=== PATIENT | female | born 1950 | race Caucasian/White ===

== ENCOUNTER 2024-11-11 11:30 | Inpatient (IN) | payer MEDICARE, BC ==
[~2024-11-11] VITALS: Ht 160 cm; Wt 68.0 kg
[2024-11-11 12:13] LABS: ABG BASE EXCESS -2.6 mmol/L (-2.0-3.0); ABG HCO3 22.4 mmol/L (21.0-28.0); ABG PCO2 39.5 mmHg (32.0-45.0); ABG PH 7.371 (7.350-7.450); ABG PO2 82.8 mmHg (83.0-108.0); ABG SITE RIGHT RADIAL; AaDO2 95.9 mmHg; COHb 0.8 % (0.5-1.5); MetHb 0.3 % (0.0-1.5); O2Hb 95.2 % (94.0-98.0); VT, ABG 500 mL
[2024-11-11 12:15] LABS: BASOPHILS % (AUTO) 0.1 % (0.0-2.0); EOSINOPHILS % (AUTO) 0.3 % (0.0-7.0); HEMATOCRIT 42.2 % (31.2-41.9); HEMOGLOBIN 14.2 g/dL (10.9-14.3); LYMPHOCYTES % (AUTO) 9.8 % (20.5-51.5); MEAN CORPUSCULAR HEMOGLOBIN 29.7 uug (24.7-32.8); MEAN CORPUSCULAR HGB CONC 34 g/dL (32.3-35.6); MEAN CORPUSCULAR VOLUME 88.4 fL (75.5-95.3); MONOCYTES # (AUTO) 0.1 K/uL (0.1-1.30); MONOCYTES % (AUTO) 1.2 % (0.0-11.0); NEUTROPHILS # (AUTO) 9.1 K/uL (1.8-8.9); NEUTROPHILS % (AUTO) 88.6 % (38.5-71.5); PLATELET COUNT (AUTO) 209 K/uL (179-408); RED BLOOD CELL COUNT(AUTO) 4.77 MIL/uL (3.63-4.92); RED CELL DISTRIBUTION WIDTH 13.5 % (12.3-17.7); WHITE BLOOD COUNT (AUTO) 10.3 K/uL (3.8-11.8)
[2024-11-11 12:18] LABS: DIFFERENTIAL COMMENT 1
[2024-11-11 12:37] LABS: CALCIUM 8.6 mg/dL (8.5-10.1); CARBON DIOXIDE 26 mmol/L (21-32); CHLORIDE 104 mmol/L (98-107); CREATININE 0.7 mg/dL (0.6-1.3); GLUCOSE 252 mg/dL (74-106); POTASSIUM 3.7 mmol/L (3.5-5.1); SODIUM SERUM 138 mmol/L (136-145); UREA NITROGEN, BLOOD 16 mg/dL (7-18)
[2024-11-11 12:49] LABS: ALANINE AMINOTRANSFERASE 26 U/L (14-59); ALBUMIN 3.4 g/dL (3.4-5.0); ALKALINE PHOSPHATASE 74 U/L (50-136); ASPARTATE AMINOTRANSFERASE 19 U/L (15-37); BILIRUBIN,DIRECT 0.1 mg/dL (0.0-0.2); BILIRUBIN,TOTAL 0.7 mg/dL (0.2-1.0); NT-PRO BNP 50 pg/mL (0-125)
[2024-11-11 13:14] LABS: *BILIRUBIN,URIN NEGATIVE (NEGATIVE); *BLOOD, URINE NEGATIVE (NEGATIVE); *CLARITY,URINE CLEAR (CLEAR); *COLOR,URINE YELLOW (YELLOW); *KETONES,URINE NEGATIVE (NEGATIVE); *PROTEIN,URINE NEGATIVE (NEGATIVE); *UROBILINOGEN,URINE 0.2 E.U./dl (NORMAL); LEUKOCYTE ESTERASE ,URINE 1+ (NEGATIVE); NITRITE, URINE NEGATIVE (NEGATIVE); UGLUCOSE TRACE (NEGATIVE)
[2024-11-11 13:24] LABS: BACTERIA,URINE FEW /HPF (NONE SEEN); RBC,URINE 0-3 /HPF (0-3); SQUAMOUS EPITHELIAL CELL,UR FEW /HPF (NONE SEEN)
[2024-11-11] MEDS ORDERED: FUROSEMIDE 20 MG/2 ML VIAL ONE (15:15)
[2024-11-11] MEDS: FUROSEMIDE 20 MG/2 ML VIAL IV ONE (15:33)
[2024-11-11] MEDS ORDERED: HYDR-3973 PO (16:33)
[2024-11-11] MEDS ORDERED: OMEP40CA21 PO (16:33)
[2024-11-11] MEDS ORDERED: ALPR0.5T8 PO (16:33)
[2024-11-11] MEDS ORDERED: PROPOFOL 100 ML ONE (18:54)
[2024-11-11] MEDS: IV NORMAL SALINE 500 ML BAG IV ONE (20:35)
[2024-11-11] MEDS: PROPOFOL 100 ML IV PRN (21:35)
[2024-11-11] MEDS ORDERED: ACETAMINOPHEN 325 MG TABLET PO PRN (21:45)
[2024-11-11] MEDS ORDERED: ONDANSETRON 4 MG/2 ML VIAL IV PRN (21:45)
[2024-11-11 22:00] VITALS: BP 130/65; TEMP 98.5; O2SAT 99
[2024-11-11] MEDS: ENOXAPARIN SODIUM 40 MG/0.4 ML DISP.SYRIN SQ SCH (22:11)
[2024-11-11] MEDS ORDERED: CEFTRIAXONE /D5W 50ML IVPB **ER PYXIS IV ONE (22:43)
[2024-11-11 23:00] VITALS: BP 132/71; O2SAT 100
[2024-11-11] MEDS: CEFTRIAXONE 1 G in IV DEXTROSE 5% 50 ML IV SCH (23:30)
[2024-11-12] VITALS (32 sets, daily range): BP systolic 102–151; BP diastolic 34–132; TEMP 98.3–99.3; O2SAT 89–100
[2024-11-12 05:54] LABS: BASOPHILS # (AUTO) 0.1 K/UL (0.0-0.2); BASOPHILS % (AUTO) 0.5 % (0.0-2.0); EOSINOPHILS # (AUTO) 0.1 K/uL (0.0-0.7); EOSINOPHILS % (AUTO) 0.6 % (0.0-7.0); HEMATOCRIT 37.1 % (31.2-41.9); HEMOGLOBIN 12.6 g/dL (10.9-14.3); LYMPHOCYTES % (AUTO) 13.7 % (20.5-51.5); MEAN CORPUSCULAR HEMOGLOBIN 30.2 uug (24.7-32.8); MEAN CORPUSCULAR HGB CONC 34 g/dL (32.3-35.6); MEAN CORPUSCULAR VOLUME 88.8 fL (75.5-95.3); MONOCYTES # (AUTO) 1.2 K/uL (0.1-1.30); MONOCYTES % (AUTO) 7.9 % (0.0-11.0); NEUTROPHILS # (AUTO) 11.3 K/uL (1.8-8.9); NEUTROPHILS % (AUTO) 77.3 % (38.5-71.5); PLATELET COUNT (AUTO) 232 K/uL (179-408); RED BLOOD CELL COUNT(AUTO) 4.17 MIL/uL (3.63-4.92); RED CELL DISTRIBUTION WIDTH 13.6 % (12.3-17.7); WHITE BLOOD COUNT (AUTO) 14.7 K/uL (3.8-11.8)
[2024-11-12 06:07] LABS: DIFFERENTIAL COMMENT 1
[2024-11-12 06:18] LABS: CALCIUM 8.5 mg/dL (8.5-10.1); CARBON DIOXIDE 27 mmol/L (21-32); CHLORIDE 106 mmol/L (98-107); CREATININE 0.7 mg/dL (0.6-1.3); GLUCOSE 166 mg/dL (74-106); MAGNESIUM 1.9 mg/dL (1.8-2.4); POTASSIUM 4.4 mmol/L (3.5-5.1); SODIUM SERUM 141 mmol/L (136-145); UREA NITROGEN, BLOOD 12 mg/dL (7-18)
[2024-11-12 10:10] LABS: ABG BASE EXCESS 3.1 mmol/L (-2.0-3.0); ABG HCO3 26.7 mmol/L (21.0-28.0); ABG PCO2 37.5 mmHg (32.0-45.0); ABG PO2 101.3 mmHg (83.0-108.0); ABG SITE LEFT BRACHIAL; ABG TOTAL HEMOGLOBIN 13.3 G/dL (12.0-16.0); COHb 0.4 % (0.5-1.5); MetHb 0.1 % (0.0-1.5); O2Hb 97.5 % (94.0-98.0)
[2024-11-12] MEDS ORDERED: DC PROPOFOL ONCE EXTUBATED XX PRN (10:15)
[2024-11-12] MEDS ORDERED: MORPHINE SULFATE 10 MG/1 ML DISP.SYRIN IV PRN (10:45)
[2024-11-12] MEDS: MORPHINE SULFATE 2 MG/1 ML DISP.SYRIN IV PRN (10:56)
[2024-11-12] MEDS ORDERED: DEXTROSE 50% 50 ML DISP.SYRIN IV PRN (12:15)
[2024-11-12] MEDS: BLOOD SUGAR DIAGNOSTIC 1 EACH STRIP VI SCH (12:48)
[2024-11-12] MEDS: INSULIN REGULAR, HUMAN 1000 UNIT/10 ML VIAL SQ PRN (12:49)
[2024-11-12] MEDS: ALPRAZOLAM 0.5 MG TABLET PO PRN (18:19)
[2024-11-13] VITALS (17 sets, daily range): BP systolic 89–127; BP diastolic 40–64; TEMP 98.5–98.9; O2SAT 92–98
[2024-11-13 07:14] LABS: BASOPHILS % (AUTO) 0.3 % (0.0-2.0); EOSINOPHILS # (AUTO) 0.1 K/uL (0.0-0.7); EOSINOPHILS % (AUTO) 0.7 % (0.0-7.0); HEMATOCRIT 37.1 % (31.2-41.9); HEMOGLOBIN 12.6 g/dL (10.9-14.3); LYMPHOCYTES % (AUTO) 24.3 % (20.5-51.5); MEAN CORPUSCULAR HEMOGLOBIN 30.2 uug (24.7-32.8); MEAN CORPUSCULAR HGB CONC 34 g/dL (32.3-35.6); MEAN CORPUSCULAR VOLUME 88.9 fL (75.5-95.3); MONOCYTES # (AUTO) 0.7 K/uL (0.1-1.30); MONOCYTES % (AUTO) 8.6 % (0.0-11.0); NEUTROPHILS # (AUTO) 5.6 K/uL (1.8-8.9); NEUTROPHILS % (AUTO) 66.1 % (38.5-71.5); PLATELET COUNT (AUTO) 197 K/uL (179-408); RED BLOOD CELL COUNT(AUTO) 4.17 MIL/uL (3.63-4.92); RED CELL DISTRIBUTION WIDTH 13.4 % (12.3-17.7); WHITE BLOOD COUNT (AUTO) 8.4 K/uL (3.8-11.8)
[2024-11-13 07:33] LABS: CALCIUM 8.7 mg/dL (8.5-10.1); CARBON DIOXIDE 30 mmol/L (21-32); CHLORIDE 104 mmol/L (98-107); CREATININE 0.6 mg/dL (0.6-1.3); GLUCOSE 140 mg/dL (74-106); MAGNESIUM 2.2 mg/dL (1.8-2.4); POTASSIUM 3.3 mmol/L (3.5-5.1); SODIUM SERUM 141 mmol/L (136-145); UREA NITROGEN, BLOOD 9 mg/dL (7-18)
[2024-11-13 07:39] LABS: DIFFERENTIAL COMMENT 1
[2024-11-13] MEDS: HYDROCODONE/APAP 5-325MG TABLET PO PRN (07:52)
[2024-11-13] MEDS: POTASSIUM CHLORIDE 20 MEQ TAB.PRT.SR PO ONE (12:31)
== END 2024-11-13 15:10 | disposition home or self-care (01) | DRG 208 ==
LOC: ER 11:30 → CCU 20:26
PROVIDERS: ADMIT Nurse Practitioner Acute Care; ATTEND Nurse Practitioner Acute Care
PROC: 5A1935Z Respiratory Ventilation, Less than 24 Consecutive Hours (ICD-10-PCS; principal; 2024-11-11)
DX: J95.821 Acute postprocedural respiratory failure (principal); I97.191 Other postprocedural cardiac functional disturbances following other surgery; D68.59 Other primary thrombophilia; N39.0 Urinary tract infection, site not specified; E87.70 Fluid overload, unspecified; Y83.4 Other reconstructive surgery as the cause of abnormal reaction of the patient, or of later complication, without mention of misadventure at the time of the procedure; Y79.3 Surgical instruments, materials and orthopedic devices (including sutures) associated with adverse incidents; Y92.530 Ambulatory surgery center as the place of occurrence of the external cause; E66.01 Morbid (severe) obesity due to excess calories; T78.3XXA Angioneurotic edema, initial encounter; T88.8XXA Other specified complications of surgical and medical care, not elsewhere classified, initial encounter; T88.4XXD Failed or difficult intubation, subsequent encounter; E11.9 Type 2 diabetes mellitus without complications
CPT/HCPCS: 36415; 36600; 71045; 82803; 83735; 84100; 84484; 85025; 87086; 94002; 99082-TC; A4606; A4663; C1758; G0378; J0696; J1650; J1815; J1940; J2270; J3490